=== PATIENT | male | born 1965 | race Caucasian/White ===

== ENCOUNTER 2025-04-11 14:00 | Inpatient (IN) | payer OTHER ==
[2025-04-11 14:56] LABS: #Basophils 0.06 10x3/uL (0.0-0.2); #Eosinophils 1.29 10x3/uL (0.0-0.7); #Monocytes 0.44 10x3/uL (0.11-0.59); #Neutrophils 3.40 10x3/uL (1.40-6.50); %Basophils 0.9 % (0.0-1.0); %Eosinophils 18.7 % (0.0-10.0); %Lymphocytes 24.6 % (21.0-51.0); %Monocytes 6.4 % (0.0-10.0); %Neutrophils 49.3 % (42.0-75.0); Hematocrit 36.8 % (42.0-52.0); Hemoglobin 11.7 g/dL (14.0-18.0); Mean Corpuscular Hemoglobin 29.1 pg (27.0-31.0); Mean Corpuscular Volume 91.5 fL (78.0-98.0); Platelet Count 288 10x3/uL (130-400); Red Blood Cell (RBC) Count 4.02 mill/uL (4.70-6.10); White Blood Cell (WBC) Count 6.90 10x3/uL (4.8-10.8)
[2025-04-11 15:12] LABS: Anion Gap 9 mmol/L (10-20); BUN (Urea Nitrogen) 9 mg/dL (8.4-25.7); Calc. Creatinine Clearance 0 mL/min (70-130); Calcium 8.6 mg/dL (7.8-10.44); Carbon Dioxide 25 mmol/L (22-29); Chloride 109 mmol/L (98-107); Glucose 102 mg/dL (70-105); Potassium 4.2 mmol/L (3.5-5.1); Sodium 139 mmol/L (136-145)
[2025-04-14] MEDS ORDERED: PHENYLEPHRINE-NS 100 MCG/ML 10 ML SYRINGE ONE ×3 (06:38→09:29)
[2025-04-14] MEDS ORDERED: PROPOFOL 20 ML ONE (06:41)
[2025-04-14] MEDS ORDERED: Rocuronium Bromide 10 MG/ML (10ML VIAL) ONE ×2 (06:41→08:34)
[2025-04-14] MEDS ORDERED: Lidocaine 1% PF 5 ML VIAL ONE (06:41)
[2025-04-14] MEDS ORDERED: Etomidate 40 MG (20 mL) VIAL ONE (06:42)
[2025-04-14] MEDS ORDERED: Heparin 10,000 UNITS/1 ML VIAL 30,000 UNITS in Sodium Chloride 0.9% 1,000 ML FS SCH (06:45)
[2025-04-14] MEDS ORDERED: Sevoflurane 250 ML INH ANEST BOTTLE ONE (06:47)
[2025-04-14] MEDS ORDERED: Heparin 5,000 UNITS/ML VIAL ONE (07:30)
[2025-04-14] MEDS ORDERED: Calcium Chloride 1 GM/10 ML Abboject SYRINGE ONE (07:30)
[2025-04-14] MEDS ORDERED: Cardioplegic Soln 1,000 ML BAG ONE (07:30)
[2025-04-14] MEDS ORDERED: Heparin 30,000 units/30 ml VIAL ONE (07:30)
[2025-04-14] MEDS ORDERED: Thrombin 5000 UNITS/5 ML VIAL ONE (07:30)
[2025-04-14] MEDS ORDERED: NOREPINEPHRINE 8 MG/250 ML-D5W 250 ML ONE (08:09)
[2025-04-14] MEDS ORDERED: hydrALAZINE 20 MG/ML VIAL SLOW IVP PRN (10:49)
[2025-04-14] MEDS ORDERED: Bisacodyl 10 MG SUPP PR PRN (10:49)
[2025-04-14] MEDS ORDERED: Mag-Al 1200 mg/1200 mg/30 ML UDCUP PO PRN (10:49)
[2025-04-14] MEDS ORDERED: Ondansetron PF 4 MG/2 ML Vial IVP PRN (10:49)
[2025-04-14] MEDS ORDERED: Acetaminophen 325 MG TAB PO PRN (10:49)
[2025-04-14] MEDS ORDERED: Guaifenesin DM 100-10/5 ML UDCUP PO PRN (10:49)
[2025-04-14] MEDS ORDERED: Nitroglycerin 50 MG/250 ML BOT 250 ML IVPB PRN (10:49)
[2025-04-14 10:59] LABS: Actual Bicarbonate (HCO3a) 19.4 mEq/L (22-28); Base Excess (BEa) -5.6 mEq/L (-2.0 to +3.0); CO2 Tension 35.8 mmHg (35.0-45.0); Calcium, Ionized (arterial) 1.11 mmol/L (1.12-1.30); Hematocrit-ABG 32 % (42.0-52.0); Hemoglobin (Hb) 11.0 g/dL (14.0-18.0); O2 Tension (PaO2), arterial 190.9 mmHg (80.0-100.0); Potassium - ABG Lab 4.62 mmol/L (3.70-5.30); pH, Arterial 7.351 (7.35-7.45)
[2025-04-14 11:01] LABS: Puncture Site Arterial Line
[2025-04-14 11:02] LABS: ALV-art Gradient 192.150 mmHg (0-20)
[2025-04-14 11:10] LABS: #Basophils 0.06 10x3/uL (0.0-0.2); #Eosinophils 0.81 10x3/uL (0.0-0.7); #Monocytes 0.36 10x3/uL (0.11-0.59); #Neutrophils 12.71 10x3/uL (1.40-6.50); %Basophils 0.4 % (0.0-1.0); %Eosinophils 5.2 % (0.0-10.0); %Lymphocytes 9.0 % (21.0-51.0); %Monocytes 2.3 % (0.0-10.0); %Neutrophils 82.1 % (42.0-75.0); Hematocrit 31.6 % (42.0-52.0); Hemoglobin 9.9 g/dL (14.0-18.0); Mean Corpuscular Hemoglobin 29.6 pg (27.0-31.0); Mean Corpuscular Volume 94.6 fL (78.0-98.0); Platelet Count 219 10x3/uL (130-400); Red Blood Cell (RBC) Count 3.34 mill/uL (4.70-6.10); White Blood Cell (WBC) Count 15.50 10x3/uL (4.8-10.8)
[2025-04-14] MEDS: Ketorolac Tromethamine 30 MG (1 mL) VIAL IVP SCH (11:21)
[2025-04-14 11:23] LABS: PTT 35.1 sec (22.9-36.1)
[2025-04-14] MEDS: D5 1/2 NS w/20 mEq KCL 1,000 ML IV SCH (11:24)
[2025-04-14 11:25] LABS: Anion Gap 13 mmol/L (10-20); BUN (Urea Nitrogen) 10 mg/dL (8.4-25.7); Calc. Creatinine Clearance 124 mL/min (70-130); Calcium 7.4 mg/dL (7.8-10.44); Carbon Dioxide 20 mmol/L (22-29); Chloride 112 mmol/L (98-107); Glucose 161 mg/dL (70-105); Potassium 4.8 mmol/L (3.5-5.1); Sodium 140 mmol/L (136-145)
[2025-04-14] MEDS: Magnesium 2 GM/50 ML(in water) 2 GM in Premix 1 BAG IVPB SCH (11:25)
[2025-04-14] MEDS ORDERED: Dextrose 50% Abboject 50 ML SYRINGE SLOW IVP PRN (11:30)
[2025-04-14] MEDS ORDERED: Glucagon 1 MG/ML KIT SC PRN (11:30)
[2025-04-14 11:48] LABS: INR-International Normal Ratio 1.5; Prothrombin Time 18.5 sec (12.0-14.7)
[2025-04-14 13:41] LABS: Actual Bicarbonate (HCO3a) 19.9 mEq/L (22-28); Base Excess (BEa) -3.4 mEq/L (-2.0 to +3.0); CO2 Tension 30.5 mmHg (35.0-45.0); Calcium, Ionized (arterial) 1.08 mmol/L (1.12-1.30); Hematocrit-ABG 35 % (42.0-52.0); Hemoglobin (Hb) 11.9 g/dL (14.0-18.0); O2 Tension (PaO2), arterial 159.4 mmHg (80.0-100.0); Potassium - ABG Lab 4.09 mmol/L (3.70-5.30); pH, Arterial 7.432 (7.35-7.45)
[2025-04-14 13:55] LABS: ALV-art Gradient 87.675 mmHg (0-20); Puncture Site Arterial Line
[2025-04-14] MEDS: Gabapentin 100 MG CAP PO SCH (16:28)
[2025-04-14 16:39] VITALS: BMI 26.9
[2025-04-14 16:50] LABS: Hematocrit 31.0 % (42.0-52.0); Hemoglobin 9.6 g/dL (14.0-18.0)
[2025-04-14 17:13] LABS: Potassium 3.6 mmol/L (3.5-5.1)
[2025-04-14] MEDS: Albumin 5% 12.5 GM (250 mL) BOT IVPB PRN ×2 (17:41→21:04)
[2025-04-14] MEDS: Famotidine/PF 20 mg/2ml Vial SLOW IVP SCH (19:27)
[2025-04-14] MEDS: Mupirocin 1 GM TUBE TP SCH (19:28)
[2025-04-15 04:16] LABS: #Basophils 0.04 10x3/uL (0.0-0.2); #Eosinophils 0.15 10x3/uL (0.0-0.7); #Monocytes 0.61 10x3/uL (0.11-0.59); #Neutrophils 7.14 10x3/uL (1.40-6.50); %Basophils 0.4 % (0.0-1.0); %Eosinophils 1.6 % (0.0-10.0); %Lymphocytes 16.4 % (21.0-51.0); %Monocytes 6.4 % (0.0-10.0); %Neutrophils 74.9 % (42.0-75.0); Hematocrit 30.0 % (42.0-52.0); Hemoglobin 9.4 g/dL (14.0-18.0); Mean Corpuscular Hemoglobin 29.6 pg (27.0-31.0); Mean Corpuscular Volume 94.3 fL (78.0-98.0); Platelet Count 205 10x3/uL (130-400); Red Blood Cell (RBC) Count 3.18 mill/uL (4.70-6.10); White Blood Cell (WBC) Count 9.53 10x3/uL (4.8-10.8)
[2025-04-15 04:38] LABS: Anion Gap 9 mmol/L (10-20); BUN (Urea Nitrogen) 9 mg/dL (8.4-25.7); Calc. Creatinine Clearance 137 mL/min (70-130); Calcium 7.1 mg/dL (7.8-10.44); Carbon Dioxide 23 mmol/L (22-29); Chloride 110 mmol/L (98-107); Glucose 120 mg/dL (70-105); Potassium 3.9 mmol/L (3.5-5.1); Sodium 138 mmol/L (136-145)
[2025-04-15] MEDS: Potassium Chloride 20 MEQ (100 mL) BAG IVPB PRN (05:16)
[2025-04-15] MEDS: Aspirin 325 MG TAB PO SCH (10:21)
[2025-04-15] MEDS: Magnesium 2 GM/50 ML(in water) 2 GM in Premix 1 BAG IVPB SCH (10:22)
[2025-04-15] MEDS: Enoxaparin 30 MG (0.3 mL) SYRINGE SC SCH (10:22)
[2025-04-15] MEDS ORDERED: Artificial Tear Ophth Sol 15 ML BOT EA EYE PRN (17:36)
[2025-04-15] MEDS ORDERED: Mag-Al 1200 mg/1200 mg/30 ML UDCUP PO PRN (17:36)
[2025-04-15] MEDS ORDERED: diphenhydrAMINE 25 MG CAP PO PRN (17:36)
[2025-04-15] MEDS ORDERED: Guaifenesin DM 100-10/5 ML UDCUP PO PRN (17:36)
[2025-04-15] MEDS ORDERED: Bisacodyl 10 MG SUPP PR PRN (17:36)
[2025-04-15] MEDS ORDERED: Mineral Oil ENEMA PR PRN (17:36)
[2025-04-15] MEDS ORDERED: Nitroglycerin 0.4 MG TAB (25 Tab Bottle) SL PRN (17:36)
[2025-04-15] MEDS ORDERED: Milk Of Magnesia 30 ML UDCUP PO PRN (17:36)
[2025-04-15] MEDS ORDERED: Pantoprazole 40 MG DR.TAB PO SCH (17:36)
[2025-04-15] MEDS: Pantoprazole 40 MG DR.TAB PO SCH (19:10)
[2025-04-15] MEDS: Famotidine 20 MG TAB PO SCH (21:02)
[2025-04-16] MEDS: Pantoprazole 40 MG DR.TAB PO SCH (10:40)
[2025-04-17 11:36] VITALS: BP 118/75; TEMP 98.2
== END 2025-04-17 12:01 | disposition home or self-care (01) | DRG 236 ==
LOC: SURG A 04-14 06:32 → CCU 04-14 10:54 → PCU 04-15 17:51
PROVIDERS: ADMIT Thoracic Surgery (Cardiothoracic Vascular Surgery); ATTEND Thoracic Surgery (Cardiothoracic Vascular Surgery)
PROC: 02100Z9 Bypass Coronary Artery, One Artery from Left Internal Mammary, Open Approach (ICD-10-PCS; principal; 2025-04-14)
PROC: 021009W Bypass Coronary Artery, One Artery from Aorta with Autologous Venous Tissue, Open Approach (ICD-10-PCS; 2025-04-14)
PROC: 06BQ4ZZ Excision of Left Saphenous Vein, Percutaneous Endoscopic Approach (ICD-10-PCS; 2025-04-14)
PROC: 02L70CK Occlusion of Left Atrial Appendage with Extraluminal Device, Open Approach (ICD-10-PCS; 2025-04-14)
PROC: 5A1221Z Performance of Cardiac Output, Continuous (ICD-10-PCS; 2025-04-14)
DX: I25.10 Atherosclerotic heart disease of native coronary artery without angina pectoris (principal); I10 Essential (primary) hypertension; E78.5 Hyperlipidemia, unspecified; Z79.82 Long term (current) use of aspirin; Z79.899 Other long term (current) drug therapy; I25.2 Old myocardial infarction; Z95.5 Presence of coronary angioplasty implant and graft; Z98.890 Other specified postprocedural states
CPT/HCPCS: 36415; 36416; 71045; 80048; 82805; 85025; 85610; 85730; 86850; 86900; 86901; 93005; 93010; 93798; 94002; 97139; A4311; C1751; C1889; J0169; J0665; J1100; J1308; J1642; J1644; J1650; J1815; J1885; J2250; J2270; J2440; J2704; J3010; J3373; J3475; J3480; P9045; S0017

== ENCOUNTER 2025-04-11 14:16 | Outpatient (CLI) | payer OTHER | END 2025-04-11 14:17 | disposition home or self-care (01) | LOC: LABBT 14:16 | PROVIDERS: ATTEND Thoracic Surgery (Cardiothoracic Vascular Surgery) | DX: Z01.818 Encounter for other preprocedural examination (principal); I25.10 Atherosclerotic heart disease of native coronary artery without angina pectoris | CPT/HCPCS: 71046; 93005; 93010 ==